=== PATIENT | female | born 1995 | race Caucasian/White ===

== ENCOUNTER 2017-05-19 14:04 | Emergency (ER) | payer SELFPAY ==
[2017-05-19] MEDS ORDERED: CLINDAMYCIN 150 MG CAP PO ONE (14:31)
[2017-05-19] MEDS ORDERED: ACYCLOVIR 200 MG CAPSULE PO ONE (14:31)
--- NOTE | 2017-05-19 14:31 | Emergency Department Record ---
History of Present Illness - General Chief complaint: Allergic Reaction Stated complaint: SWOLLEN LIP /THROAT Time Seen by Provider: 05/19/17 14:21 Source: Patient Mode of Arrival: Ambulatory Limitations: No limitations - History of Present Illness Initial Comments: 21 yo female presents with lip pain and swelling starting yesterday and worse today. The symptoms started with a cold sore. Today both lips are swollen. No fevers. No tongue or gum involvement. No other facial involvement. She also noted a few painful spots on the left ring, small finger and thumb. No fevers or chills. No NVD. No sore throat or trouble swallowing. No nasal symptoms. MD Complaint: Other (Swollen lip) Onset/Timin -: Days(s) Exposure: Medication Symptoms: Itching, Difficulty swallowing, Facial swelling, Lip swelling, Orolingual swelling Severity: Moderate, Severe Treatment Prior to Arrival: Topical medicine - Related Data Previous Rx's Medication Instructions Recorded Acyclovir 800 mg PO Q6H #28 tablet 05/19/17 Clindamycin HCl 300 mg PO Q6H #28 capsule 05/19/17 Allergies Allergy/AdvReac Type Severity Reaction Status Date / Time No Known Drug Allergies Allergy Verified 05/19/17 14:13 Travel Screening - Travel/Exposure Within Last 30 Days Have you traveled within the last 30 days?: No - Travel/Exposure Within Last Year Have you traveled outside the [place] in the last year?: No - Additonal Travel Details Have you been exposed to anyone with a communicable illness?: No - Travel Symptoms Symptom Screening: None Review of Systems Constitutional: Denies: Chills, Fever, Malaise, Weakness Eyes: Denies: Eye discharge, Eye pain, Photophobia, Vision change ENT: Reports: Other (Lip pain and swelling). Denies: Congestion, Dental pain, Ear pain, Epistaxis, Hearing loss, Throat pain Cardiovascular: Denies: Chest pain, Palpitations, Syncope Endocrine: Denies: Fatigue, Polydipsia, Polyuria Gastrointestinal: Denies: Abdominal pain, Diarrhea, Nausea, Vomiting Genitourinary: Denies: Dysuria, Urgency Musculoskeletal: Denies: Arthralgia, Back pain, Joint swelling, Myalgia Skin: Reports: Rash (left hand). Denies: Bruising, Change in color Neurological: Denies: Headache, Numbness, Weakness Psychiatric: Denies: Anxiety Hematological/Lymphatic: Denies: Anemia, Blood Clots, Easy bleeding, Easy bruising, Swollen glands Past Medical History - SOCIAL HISTORY Smoking Status: Never smoker Alcohol Use: None Drug Use: None - RESPIRATORY Hx Respiratory Disorders: No - CARDIOVASCULAR Hx Cardio Disorders: No - NEURO Hx Neuro Disorders: No - GI Hx GI Disorders: No - Hx Genitourinary Disorders: No - ENDOCRINE Hx Endocrine Disorders: No - MUSCULOSKELETAL Hx Musculoskeletal Disorders: No - PSYCH Hx Psych Problems: No - HEMATOLOGY/ONCOLOGY Hx Hematology/Oncology Disorders: No Family Medical History Any Significant Family History?: Yes Physical Exam - General General Appearance: Alert, Oriented x3, Cooperative, No acute distress Limitations: No limitations - Head Head exam: Atraumatic, Normocephalic, Normal inspection - Eye Eye exam: Normal appearance, PERRL. negative: Conjunctival injection, Periorbital swelling, Scleral icterus - ENT ENT exam: Mucous membranes moist, Normal orophraynx (normal gums, tongue, posterior pharynx, the erythema is localized to the upper and lower lips), TM's normal bilaterally. negative: Normal exam Ear exam: Normal external inspection Nasal Exam: Normal inspection. negative: Discharge Mouth exam: Normal external inspection (lips are mildly swollen but soft, some superficial ulcerations noted, with dry cracking), Tongue normal. negative: Drooling, Laceration, Muffled voice, Tongue elevation, Trismus Teeth exam: Normal inspection Throat exam: Normal inspection. negative: Tonsillar erythema, Tonsillomegaly, Tonsillar exudate, R peritonsillar mass, L peritonsillar mass - Neck Neck exam: Normal inspection. negative: Lymphadenopathy - Respiratory Respiratory exam: Normal lung sounds bilaterally. negative: Accessory muscle use, Decreased breath sounds, Respiratory distress, Rhonchi, Stridor, Wheezes - Cardiovascular Cardiovascular Exam: Regular rate, Normal rhythm, Normal heart sounds - GI/Abdominal GI/Abdominal exam: Soft. negative: Tenderness - Rectal Rectal exam: Deferred - exam: Deferred - Extremities Extremities exam: Full ROM, Normal capillary refill. negative: Normal inspection, Tenderness Image of Hand: 1 - 4 small papules (drained clear fluid per the patient) 2-3mm - Back Back exam: Reports: Normal inspection - Neurological Neurological exam: Alert, Normal gait, Oriented X3 - Psychiatric Psychiatric exam: Normal affect, Normal mood - Skin Skin exam: Rash Course Vital Signs 05/19/17 14:07 Temperature 98.0 F Pulse Rate 95 H Respiratory 18 Rate Blood Pressure 123/86 Pulse Ox 99 - Reevaluation(s) Reevaluation #1: Culture of the lesions taken DC on clindamycin and Acyclovir Return in 24 hours if not improved or sooner if worse 05/19/17 14:34 Disposition Disposition: Discharge Clinical Impression: Stomatitis Disposition: Home, Self-Care Condition: (1) Good Instructions: Oral Mucositis (ED) Additional Instructions: Return immediately if worse, fever, vomiting, short of breath or new concerns Clean the lips twice daily and keep moist Call your family doctor for close follow up Prescriptions: Acyclovir 800 mg PO Q6H #28 tablet Clindamycin HCl 300 mg PO Q6H #28 capsule Forms: Patient Portal Access Time of Disposition: 14:37 Quality - Quality Measures Quality Measures: N/A - Blood Pressure Screening Does Patient Have Any of the Following: No Blood Pressure Classification: Pre-Hypertensive BP Reading Systolic Measurement: 123 Diastolic Measurement: 86 Screening for High Blood Pressure: < Pre-Hypertensive BP, F/U Documented > [ [id number]] Pre-Hypertensive Follow-up Interventions: Referral to alternative/primary care provider.
[2017-05-20 16:42] LABS: SPECIMEN TYPE Other
== END 2017-05-19 14:49 | disposition home or self-care (01) ==
LOC: ER 14:04
DX: K12.1 Other forms of stomatitis (principal); R13.10 Dysphagia, unspecified
CPT/HCPCS: 99283